=== PATIENT | female | born 1975 | race Caucasian/White ===

== ENCOUNTER 2020-02-07 08:15 | Emergency (ER) | payer MEDICAID ==
[~2020-02-07] VITALS: Ht 170.2 cm; Wt 102.1 kg
[2020-02-07 08:31] VITALS: BP 117/85
--- NOTE | 2020-02-07 08:49 | Emergency Room Report ---
History of Present Illness General Chief Complaint: Upper Extremity Injury Source: Patient Present Illness HPI Disclaimer: Please note that this report is being documented using DRAGON technology. This can lead to erroneous entry secondary to incorrect interpretation by the dictating instrument. HPI: 44-year-old left-handed female presents for evaluation of left wrist pain. Patient states approximately 2 to 3 months ago she injured her left wrist and has had chronic soreness over the radial aspect of the wrist especially with prolonged motion such as writing or cleaning dishes. Last night she cannot recall a specific injury though noted pain worsening in the evening. Reports throbbing over the radial aspect. Denies numbness, tingling. Denies pain in the hand. Able to flex and extend all digits. Denies pain or trauma to the elbow or forearm. Took 400 mg Motrin this morning without significant improvement. Denies history of gout or other inflammatory conditions. Allergies: Coded Allergies: No Known Allergies (Unverified , 02/07/20) COVID-19 Screening Contact w/high risk pt: No Recent Travel to affected area: No Experienced COVID-19 symptoms?: No COVID-19 Testing performed CAREER SERVICES DIRECTOR: No Patient History Last Menstrual Period: 3 weeks ago Now: No : 1 Para: 0 Nursing Documentation-[facility] Past Medical History: No History, Except For History Of Psychiatric Problem: Yes Review of Systems All Other Systems: negative except mentioned in HPI Physical Exam Vital Signs Date Time Temp Pulse Resp B/P (MAP) Pulse Ox O2 Delivery O2 Flow Rate FiO2 02/07/20 08:20 97.9 102 18 119/81 (94) 99 Room Air General: Awake and alert, no acute distress HEENT: NC/AT. EOMI. Resp: Normal work of breathing Skin: Intact. No abrasions, laceration or rash over the exposed skin MSK: Normal tone and bulk. Moving all extremities. No obvious deformity. Patient has intact flexion extension at the wrist but pain with radial and ulnar deviation. When the wrist is ulnar deviated and the distal radius still palpated there is significant pain. Able to flex and extend all digits. No tenderness over the anatomic snuffbox. No outward signs of injury. 2+ radial pulses. Brisk capillary refill in all digits. Sensation is intact over the radial ulnar aspect of all digits. No overlying erythema or edema. Neuro: Awake and alert. Mentating appropriately Medical Decision Making Diagnostic Impression: Primary Impression: Wrist pain ER Course 44-year-old [id number] female presents for evaluation of left wrist pain. Differential includes was not limited to tendinitis, tenosynovitis, fracture, subluxation, strain, sprain, overuse injury, carpal tunnel syndrome, entrapment. Patient arrives with pain during ulnar and radial deviation consistent with a possible Patrick test. To rule out occult injury and x- ray was obtained but does not show any signs of active fracture subluxation or other abnormalities. Believe the patient is experiencing de Quervain's tenosynovitis. She states that she is currently undergoing rheumatologic work- up for rheumatoid arthritis and autoimmune thyroid issues as well. This would be consistent with that history however I cautioned that this is not a definitive diagnosis at this time. Patient was placed in a splint and treated with NSAIDs. We will continue NSAIDs and advised to follow-up with blanket inspector and PMD for ongoing work-up. Advised to return to the emergency department if symptoms worsen. She understands and agrees with this treatment plan was discharged home. Last Vital Signs Date Time Temp Pulse Resp B/P (MAP) Pulse Ox O2 Delivery O2 Flow Rate FiO2 02/07/20 08:31 98.0 81 18 117/85 98 Room Air Disposition: HOME, SELF-CARE Condition: Stable Scripts Ibuprofen* (MOTRIN*) 600 Mg Tablet 600 MG ORAL Q6H PRN for For Pain for 10 Days, #40 TAB 0 Refills Prov: Sajan Fernandez MD 02/07/20 Sajan Fernandez MD February 07, 2020 08:49
[2020-02-07] MEDS ORDERED: IBUPROFEN600 M1 ORAL (09:11)
[2020-02-07 09:50] VITALS: BP 117/85
--- NOTE | 2020-02-07 10:16 | Diagnostic Imaging Report ---
EXAM: XR Left Wrist, 2 Views CLINICAL HISTORY: INJ TECHNIQUE: Frontal and lateral views of the left wrist. COMPARISON: None FINDINGS: Bones/joints: No displaced fracture or dislocation identified. Joint space is maintained. No bony lesion. Soft tissues: Normal. IMPRESSION: No displaced fracture or dislocation identified.
== END 2020-02-07 09:50 | disposition home or self-care (01) ==
LOC: EMR 09:09
DX: M25.532 Pain in left wrist (principal)
CPT/HCPCS: 29125; 73110; Z7502; 99283